=== PATIENT | male | born 1965 ===

== ENCOUNTER 2018-04-30 11:40 | Emergency (ER) | payer BC ==
[2018-04-30 12:19] LABS: Urine Blood NEGATIVE (NEG); Urine Glucose NEGATIVE (NEG); Urine Protein NEGATIVE (NEG); Urine pH 5.5 (5.0-7.0)
--- NOTE | 2018-04-30 12:43 | RAD REPORT ---
EXAM DESCRIPTION: RAD - Chest Single View - 04/30/2018 12:37 pm CLINICAL HISTORY: Cough;Abdominal distention Chest pain. COMPARISON: No comparisons FINDINGS: Portable technique limits examination quality. The lungs are grossly clear. The heart is normal in size. No displaced fractures. IMPRESSION: No acute intrathoracic process suspected.
[2018-04-30] MEDS ORDERED: NA CHLORIDE 0.9% 1,000 ML ONE (12:44)
[2018-04-30] MEDS ORDERED: PANTOPRAZOLE 40 MG INJ ONE (12:44)
[2018-04-30] MEDS ORDERED: METRONIDAZOLE 500mg IVPB 500 MG/100 ML BAG IV ONE (12:44)
[2018-04-30] MEDS ORDERED: CIPROFLOXACIN 400mg IV 400 MG/200 ML BAG IV ONE (12:44)
--- NOTE | 2018-04-30 12:51 | EKG ---
Test Date: 2018-04-30 Test Time: 12:08:42 Rolling Machine Tender: CASIMIRO MEASUREMENT RESULTS: Intervals: Rate: 57 MA: 164 QRSD: 100 QT: 420 QTc: 408 [place]: P: 30 MA: 164 QRS: 24 T: 36 INTERPRETIVE STATEMENTS: Sinus bradycardia Otherwise normal ECG No previous ECG available for comparison Electronically Signed On 04-30-18 12:50:40 CDT by Rikki Rendon
[2018-04-30 13:15] LABS: Absolute Lymphocytes (CBC) 1.5 K/uL (0.7-4.9); Absolute Monocytes 0.5 K/uL (0.1-1.3); Basophils % 0.5 % (0-1.3); Eosinophils % 2.7 % (0-4.4); Hematocrit 43.4 % (39.6-49.0); Lymphocytes % 20.9 % (15.3-44.8); MCH 32.3 pg (27.0-35.0); MCV 89.9 fL (80-100); MPV 9.3 fL (7.6-11.3); Monocytes % 6.5 % (3.3-12.3); RBC Red Blood Cell Count 4.83 M/uL (4.33-5.43)
[2018-04-30 13:18] LABS: Protime INR 1.07
[2018-04-30 13:29] LABS: ALT/SGPT 60 U/L (12-78); AST/SGOT 30 U/L (15-37); Albumin 4.3 g/dL (3.4-5.0); Alkaline Phosphatase 73 U/L (45-117); BUN Blood Urea Nitrogen 11 mg/dL (7-18); Bicarbonate 31 mmol/L (21-32); Bilirubin Direct 0.1 mg/dL (0-0.2); Bilirubin Total 0.4 mg/dL (0.2-1.0); CKMB Creatine Kinase MB 2.4 ng/mL (0.3-3.6); Creatine Phosphokinase 224 U/L (39-308); Glucose Level 93 mg/dL (74-106); Lipase 243 U/L (73-393); Magnesium 2.4 mg/dL (1.8-2.4); NT PRO-BNP 23 pg/mL (<125); Potassium 3.6 mmol/L (3.5-5.1); Protein, Total 7.7 g/dL (6.4-8.2); Sodium Level 140 mmol/L (136-145)
--- NOTE | 2018-04-30 13:34 | RAD REPORT ---
EXAM DESCRIPTION: US - Abdomen Exam Limited - 04/30/2018 1:27 pm CLINICAL HISTORY: ABD PAIN COMPARISON: No comparisons FINDINGS: The gallbladder demonstrates no gallstones. No pericholecystic fluid or gallbladder wall t hickening. The common bile duct is normal measuring 5 mm. The liver demonstrates no findings of intrahepatic biliary dilatation. Fatty liver. IMPRESSION: Negative gallbladder/biliary tree findings. Fatty liver.
--- NOTE | 2018-04-30 14:18 | RAD REPORT ---
EXAM DESCRIPTION: CTAbdomen Pelvis W Contrast - 04/30/2018 2:09 pm CLINICAL HISTORY: Abdominal pain. ABD PAIN COMPARISON: Abdomen Exam Limited dated 04/30/2018; Chest Single View dated 04/30/2018 TECHNIQUE: Biphasic CT imaging of the abdomen and pelvis was performed with 100 ml non-ionic IV cont rast. All CT scans are performed using dose optimization technique as appropriate and may include automated exposure control or mA/KV adjustment according to patient size. FINDINGS: The lung bases are clear. The liver contains several small low-density lesions, likely cysts. The spleen, pancreas, adrenal gla nds and kidneys are within normal limits. No bowel obstruction, free air, free fluid or abscess. The appendix is not identified as a discrete structure, however, no secondary findings of appendicitis are identified. No evidence of significan t lymphadenopathy. No suspicious bony findings. IMPRESSION: No acute intra-abdominal or pelvic finding.
--- NOTE | 2018-04-30 14:26 | ER ---
Nurse's Notes [facility] Name: Calvin Razo Age: 52 yrs Sex: Male : 1965 Arrival Date: 04/30/2018 Time: 11:42 Bed 8 Private MD: Diagnosis: Abdominal tenderness;Gastrointestinal hemorrhage, unspecified Presentation: 04/30 11:58 Presenting complaint: Patient states: " I started having an upset stomach and dark ph diarrhea about a week ago. I went to Dr Hernandez's office today and they said to come here." Pt reports dark, tarry diarrhea, diffuse abdominal pain, nausea and intermittent dizziness, denies vomiting or syncope, also reports having colonoscopy approx 2-3 weeks ago w/ Meah, findings were polyps and diverticula. Transition of care: patient was not received from another setting of care. Onset of symptoms was April 30, 2018. Risk Assessment: Do you want to hurt yourself or someone else? Patient reports no desire to harm self or others. Initial Sepsis Screen: Does the patient meet any 2 criteria? No. Patient's initial sepsis screen is negative. Does the patient have a suspected source of infection? No. Patient's initial sepsis screen is negative. Care prior to arrival: None. 11:58 Method Of Arrival: Ambulatory ph 11:58 Acuity: SIL 3 ph Historical: - Allergies: 12:03 No Known Allergies; ph - PMHx: 12:03 Hyperlipidemia; Hypertension; ph - PSHx: 12:03 nasal sx; Adenoids; ph - Immunization history:: Adult Immunizations unknown. - Social history:: Smoking status: Patient uses tobacco products, chewing tobacco. - Ebola Screening: : No symptoms or risks identified at this time. - Family history:: not pertinent. Screenin:04 Abuse screen: Denies threats or abuse. Denies injuries from another. Nutritional ph screening: No deficits noted. Tuberculosis screening: No symptoms or risk factors identified. Fall Risk None identified. Assessment: 12:04 General: Appears in no apparent distress. comfortable, well groomed, Behavior is calm, ph cooperative, appropriate for age, Denies fever, feeling ill. Pain: Complains of pain in abdomen Pain currently is 5 out of 10 on a pain scale. Neuro: Level of Consciousness is awake, alert, obeys commands, Oriented to person, place, time, situation, Reports dizziness, Denies weakness. Cardiovascular: Reports fatigue, lightheadedness, nausea, Denies chest pain, shortness of breath, vomiting. Respiratory: Airway is patent Respiratory effort is even, unlabored, Respiratory pattern is regular, symmetrical, Denies shortness of breath at rest. GI: Abdomen is round Bowel sounds present X 4 quads. Abd is soft X 4 quads Abdomen is tender to palpation X 4 quads. Reports lower abdominal pain, upper abdominal pain, diarrhea, bloody stool, nausea, Patient currently denies vomiting. Derm: Skin is intact, is healthy with good turgor, Skin is pink, warm \\T\\ dry. Musculoskeletal: Circulation, motion, and sensation intact. Range of motion: intact in all extremities. 13:19 Reassessment: Patient appears in no apparent distress at this time. Patient and/or iw family updated on plan of care and expected duration. Pain level reassessed. Patient is alert, oriented x 3, equal unlabored respirations, skin warm/dry/pink. Vital Signs: 12:01 BP 154 / 97; Pulse 65; Resp 20; Temp 97.8; Pulse Ox 98% on R/A; Weight 104.33 kg; ph Height 5 ft. 10 in. (177.80 cm); Pain 5/10; 13:15 BP 132 / 87; Pulse 75; Resp 16; Pulse Ox 98% on R/A; Pain 4/10; iw 14:00 BP 122 / 68; Pulse 68; Resp 18; Pulse Ox 98% on R/A; ph 15:00 BP 118 / 64; Pulse 62; Resp 18; Temp 97.9; Pulse Ox 99% on R/A; ph 12:01 Body Mass Index 33.00 (104.33 kg, 177.80 cm) ph ED Course: 11:42 Patient arrived in ED. ph 11:48 Brittany Borges, RN is Primary Nurse. ph 11:56 Wilner Graf MD is Attending Physician. dora 12:01 Triage completed. ph 12:04 Arm band placed on. ph 12:04 Patient has correct armband on for positive identification. Placed in gown. Bed in low ph position. Call light in reach. Side rails up X 1. Pulse ox on. NIBP on. Warm blanket given. 12:22 EKG done, by it technician. reviewed by Wilner Graf MD. at1 12:36 X-ray completed. Portable x-ray completed in exam room. Patient tolerated procedure jb2 well. 12:37 XRAY Chest (1 view) In Process Unspecified. EDMS 13:10 Inserted saline lock: 20 gauge in left antecubital area, using aseptic technique. iw 13:27 US Abdomen Limited In Process Unspecified. EDMS 14:[address] sw 14:09 CT Abd/Pelvis - W/Contrast In Process Unspecified. EDMS 14:09 CT completed. Patient tolerated procedure well. Patient moved back from CT. sw 14:25 Kristina Kan MD is Referral Physician. dora 15:01 No provider procedures requiring assistance completed. IV discontinued, bleeding ph controlled, No redness/swelling at site. Pressure dressing applied. Administered Medications: 13:10 Drug: ProTONIX 40 mg Route: IVP; Site: left antecubital; iw 14:30 Follow up: Response: No adverse reaction ph 13:19 Drug: NS 0.9% 1000 ml Route: IV; Rate: 1 bolus; Site: right antecubital; iw 14:30 Follow up: Response: No adverse reaction; IV Status: Completed infusion ph 13:19 Drug: Flagyl 500 mg Volume: 100 ml; Route: IVPB; Rate: 200 ml/hr; Infused Over: 30 iw mins; Site: right antecubital; 13:45 Follow up: Response: No adverse reaction; IV Status: Completed infusion ph 13:52 Drug: Cipro 400 mg Volume: 200 ml; Route: IVPB; Infused Over: 60 mins; Site: left iw antecubital; 14:20 Follow up: Response: No adverse reaction; IV Status: Completed infusion ph Point of Care Testing: Guaiac: 13:52 Stool Guaiac: Negative; Stool Hemoccult Control: Pass; dora Outcome: 14:25 Discharge ordered by . dora 15:02 Discharged to home ambulatory, with significant other. ph 15:02 Condition: good 15:02 Discharge instructions given to patient, family, Instructed on discharge instructions, follow up and referral plans. medication usage, Demonstrated understanding of instructions, follow-up care, medications, Prescriptions given X 5 15:03 Patient left the ED. ph Signatures: Dispatcher [employer] EDOH Wilner Graf MD MD cha Buechter, Jesse jb2 Raven Shay RN RN Libby kaye, threading machine operator EKG Tat1 Brittany Borges RN RN Raysa Bedoya
--- NOTE | 2018-04-30 14:26 | EDPHYS ---
Physician Documentation [facility] Name: Calvin Rzao Age: 52 yrs Sex: Male : 1965 Arrival Date: 04/30/2018 Time: 11:42 Bed 8 Private MD: ED Physician Wilner Graf HPI: 04/30 12:10 This 52 yrs old Unknown Male presents to ER via Ambulatory with complaints of ABDOMINAL dora PAIN, BLACK STOOLS AND SP COLONOSCOPE. 12:10 The patient presents with abdominal pain in the upper abdomen. Onset: The dora symptoms/episode began/occurred 3 day(s) ago. The symptoms do not radiate. Associated signs and symptoms: Pertinent positives: nausea. The symptoms are described as crampy, dull. Modifying factors: The symptoms are alleviated by nothing, the symptoms are aggravated by food, movement, pressure. Severity of pain: At its worst the pain was mild moderate yesterday, in the emergency department the pain is unchanged. Historical: - Allergies: 12:03 No Known Allergies; ph - PMHx: 12:03 Hyperlipidemia; Hypertension; ph - PSHx: 12:03 nasal sx; Adenoids; ph - Immunization history:: Adult Immunizations unknown. - Social history:: Smoking status: Patient uses tobacco products, chewing tobacco. - Ebola Screening: : No symptoms or risks identified at this time. - Family history:: not pertinent. ROS: 12:10 Constitutional: Negative for fever, chills, and weight loss, Eyes: Negative for injury, dora pain, redness, and discharge, ENT: Negative for injury, pain, and discharge, Neck: Negative for injury, pain, and swelling, Cardiovascular: Negative for chest pain, palpitations, and edema, Respiratory: Negative for shortness of breath, cough, wheezing, and pleuritic chest pain, Back: Negative for injury and pain, : Negative for injury, bleeding, discharge, and swelling, MS/Extremity: Negative for injury and deformity, Skin: Negative for injury, rash, and discoloration, Neuro: Negative for headache, weakness, numbness, tingling, and seizure, Psych: Negative for depression, anxiety, suicide ideation, homicidal ideation, and hallucinations, Allergy/Immunology: Negative for hives, rash, and allergies, Endocrine: Negative for neck swelling, polydipsia, polyuria, polyphagia, and marked weight changes, Hematologic/Lymphatic: Negative for swollen nodes, abnormal bleeding, and unusual bruising. 12:10 Abdomen/GI: Positive for abdominal pain, of the epigastric area, right upper quadrant and left upper quadrant. Exam: 12:10 Constitutional: This is a well developed, well nourished patient who is awake, alert, dora and in no acute distress. Head/Face: Normocephalic, atraumatic. Eyes: Pupils equal round and reactive to light, extra-ocular motions intact. Lids and lashes normal. Conjunctiva and sclera are non-icteric and not injected. Cornea within normal limits. Periorbital areas with no swelling, redness, or edema. ENT: Nares patent. No nasal discharge, no septal abnormalities noted. Tympanic membranes are normal and external auditory canals are clear. Oropharynx with no redness, swelling, or masses, exudates, or evidence of obstruction, uvula midline. Mucous membranes moist. Neck: Trachea midline, no thyromegaly or masses palpated, and no cervical lymphadenopathy. Supple, full range of motion without nuchal rigidity, or vertebral point tenderness. No Meningismus. Chest/axilla: Normal chest wall appearance and motion. Nontender with no deformity. No lesions are appreciated. Cardiovascular: Regular rate and rhythm with a normal S1 and S2. No gallops, murmurs, or rubs. Normal PMI, no JVD. No pulse deficits. Respiratory: Lungs have equal breath sounds bilaterally, clear to auscultation and percussion. No rales, rhonchi or wheezes noted. No increased work of breathing, no retractions or nasal flaring. Back: No spinal tenderness. No costovertebral tenderness. Full range of motion. Male : Normal genitalia with no discharge or lesions. Skin: Warm, dry with normal turgor. Normal color with no rashes, no lesions, and no evidence of cellulitis. MS/ Extremity: Pulses equal, no cyanosis. Neurovascular intact. Full, normal range of motion. Neuro: Awake and alert, GCS 15, oriented to person, place, time, and situation. Cranial nerves II-XII grossly intact. Motor strength 5/5 in all extremities. Sensory grossly intact. Cerebellar exam normal. Normal gait. Psych: Awake, alert, with orientation to person, place and time. Behavior, mood, and affect are within normal limits. 12:10 Abdomen/GI: Inspection: abdomen appears normal, Bowel sounds: normal, Liver: no appreciated palpable abnormalities, Hernia: not appreciated. Vital Signs: 12:01 BP 154 / 97; Pulse 65; Resp 20; Temp 97.8; Pulse Ox 98% on R/A; Weight 104.33 kg; ph Height 5 ft. 10 in. (177.80 cm); Pain 5/10; 13:15 BP 132 / 87; Pulse 75; Resp 16; Pulse Ox 98% on R/A; Pain 4/10; iw 14:00 BP 122 / 68; Pulse 68; Resp 18; Pulse Ox 98% on R/A; ph 15:00 BP 118 / 64; Pulse 62; Resp 18; Temp 97.9; Pulse Ox 99% on R/A; ph 12:01 Body Mass Index 33.00 (104.33 kg, 177.80 cm) ph MDM: 11:57 Patient medically screened. [facility] 12:14 Data reviewed: vital signs, nurses notes, lab test result(s), EKG, radiologic studies, [facility] CT scan, plain films. 04/30 12:08 Order name: Basic Metabolic Panel; Complete Time: 13:51 [facility] 04/30 12:08 Order name: CBC with Diff; Complete Time: 13:51 [facility] 04/30 12:08 Order name: Ckmb; Complete Time: 13:51 [facility] 04/30 12:08 Order name: CPK; Complete Time: 13:51 [facility] 04/30 12:08 Order name: LFT's; Complete Time: 13:51 [facility] 04/30 12:08 Order name: Magnesium; Complete Time: 13:51 [facility] 04/30 12:08 Order name: NT PRO-BNP; Complete Time: 13:51 [facility] 04/30 12:08 Order name: PT-INR; Complete Time: 13:51 [facility] 04/30 12:08 Order name: Ptt, Activated; Complete Time: 13:51 [facility] 04/30 12:08 Order name: Troponin (emerg Dept Use Only); Complete Time: 13:51 [facility] 04/30 12:08 Order name: XRAY Chest (1 view); Complete Time: 13:51 [facility] 04/30 12:08 Order name: Lipase; Complete Time: 13:51 [facility] 04/30 12:10 Order name: US Abdomen Limited; Complete Time: 13:51 [facility] 04/30 12:12 Order name: Urine Dipstick--Ancillary (enter results); Complete Time: 13:51 04/30 12:08 Order name: EKG; Complete Time: 12:09 [facility] 04/30 12:08 Order name: Cardiac monitoring; Complete Time: 12:39 [facility] 04/30 12:08 Order name: EKG - Nurse/Tech; Complete Time: 12:39 [facility] 04/30 12:08 Order name: IV Saline Lock; Complete Time: 14:13 [facility] 04/30 12:08 Order name: Labs collected and sent; Complete Time: 14:13 [facility] 04/30 12:08 Order name: O2 Per Protocol; Complete Time: 12:39 [facility] 04/30 12:08 Order name: O2 Sat Monitoring; Complete Time: 12:39 [facility] 04/30 12:08 Order name: Urine Dipstick-Ancillary (obtain specimen); Complete Time: 12:39 [facility] 04/30 12:10 Order name: CT Abd/Pelvis - W/Contrast; Complete Time: 14:25 [facility] Administered Medications: 13:10 Drug: ProTONIX 40 mg Route: IVP; Site: left antecubital; iw 14:30 Follow up: Response: No adverse reaction ph 13:19 Drug: NS 0.9% 1000 ml Route: IV; Rate: 1 bolus; Site: right antecubital; iw 14:30 Follow up: Response: No adverse reaction; IV Status: Completed infusion ph 13:19 Drug: Flagyl 500 mg Volume: 100 ml; Route: IVPB; Rate: 200 ml/hr; Infused Over: 30 iw mins; Site: right antecubital; 13:45 Follow up: Response: No adverse reaction; IV Status: Completed infusion ph 13:52 Drug: Cipro 400 mg Volume: 200 ml; Route: IVPB; Infused Over: 60 mins; Site: left iw antecubital; 14:20 Follow up: Response: No adverse reaction; IV Status: Completed infusion ph Point of Care Testing: Guaiac: 13:52 Stool Guaiac: Negative; Stool Hemoccult Control: Pass; [facility] Disposition: 04/30/18 14:25 Discharged to Home. Impression: Abdominal tenderness, Gastrointestinal hemorrhage, unspecified. - Condition is Stable. - Discharge Instructions: Abdominal Pain, Adult, Gastrointestinal Bleeding, Abdominal Pain, Adult, [id number]. - Prescriptions for Bentyl 20 mg Oral Tablet - take 1 tablet by ORAL route every 6 hours As needed; 20 tablet. Flagyl 500 mg Oral Tablet - take 1 tablet by ORAL route every 6 hours for 10 days; 40 tablet. Protonix 40 mg Oral Tablet - take 1 tablet by ORAL route once daily; 30 tablet. Zofran 4 mg Oral Tablet - take 1 tablet by ORAL route every 12 hours As needed; 20 tablet. Cipro 500 mg Oral Tablet - take 1 tablet by ORAL route every 12 hours for 7 days; 14 tablet. - Medication Reconciliation Form, Thank You Letter, Antibiotic Education, Prescription Opioid Use form. - Follow up: Private Physician; When: 2 - 3 days; Reason: Recheck today's complaints, Continuance of care, Re-evaluation by your physician. Follow up: Kristina Kan; When: 2 - 3 days; Reason: Recheck today's complaints, Continuance of care, Re-evaluation by your physician. - Problem is new. - Symptoms have improved. Signatures: Dispatcher [employer] EDWilner Almonte MD MD cha Williams, Irene, RN RN iw Brittany Borges RN RN ph Corrections: (The following items were deleted from the chart) 15:03 14:25 04/30/2018 14:25 Discharged to Home. Impression: Abdominal tenderness; ph Gastrointestinal hemorrhage, unspecified. Condition is Stable. Discharge Instructions: Abdominal Pain, Adult, Gastrointestinal Bleeding, Abdominal Pain, Adult, [id number]. Prescriptions for Bentyl 20 mg Oral Tablet - take 1 tablet by ORAL route every 6 hours As needed; 20 tablet, Flagyl 500 mg Oral Tablet - take 1 tablet by ORAL route every 6 hours for 10 days; 40 tablet, Protonix 40 mg Oral Tablet - take 1 tablet by ORAL route once daily; 30 tablet, Zofran 4 mg Oral Tablet - take 1 tablet by ORAL route every 12 hours As needed; 20 tablet, Cipro 500 mg Oral Tablet - take 1 tablet by ORAL route every 12 hours for 7 days; 14 tablet. and Forms are Medication Reconciliation Form, Thank You Letter, Antibiotic Education, Prescription Opioid Use. Follow up: Private Physician; When: 2 - 3 days; Reason: Recheck today's complaints, Continuance of care, Re-evaluation by your physician. Follow up: Kristina Kan; When: 2 - 3 days; Reason: Recheck today's complaints, Continuance of care, Re-evaluation by your physician. Problem is new. Symptoms have improved. dora
== END 2018-04-30 15:03 | disposition home or self-care (01) ==
LOC: ER 11:40
DX: K92.2 Gastrointestinal hemorrhage, unspecified (principal); E78.5 Hyperlipidemia, unspecified; I10 Essential (primary) hypertension
CPT/HCPCS: 36415; 71045; 74177; 76705; 80048; 80076; 81003; 82550; 82553; 83690; 83735; 83880; 84484; 85025; 85610; 85730; 93005; 99284; C9113; J0744; J7030; Q9967